=== PATIENT | male | born 1985 | race American Indian/Alaskan Native ===

== ENCOUNTER 2019-02-20 19:56 | Emergency (ER) | payer OTHER ==
--- NOTE | 2019-02-20 22:29 | XRay Report ---
PROCEDURE: XR CHEST ROUTINE 2V TECHNIQUE: PA and lateral chest radiographs were obtained. HISTORY: chest pain COMPARISONS: None. FINDINGS: Heart: Normal. Mediastinum/Vessels: Normal. Lungs/Pleural space: Normal. Bony thorax: No acute osseous abnormality. IMPRESSION: Normal examination. This document is electronically signed by Colton Astorga MD., Feb 20 2019 10:27:03 PM ET
[2019-02-20] MEDS ORDERED: LIDOCAINE VISCOUS 2% PO ONE (23:41)
[2019-02-20] MEDS ORDERED: ALUM-MAG HYDROX-SIMETH 200-200-20MG/5ML PO ONE (23:41)
[2019-02-21 00:03] LABS: Basophils % (Auto) 0.4 % (0.0-1.8); Eosinophils # (Auto) 0.1 K/mm3 (0.0-0.4); Eosinophils % (Auto) 1.3 % (0.0-4.3); Hematocrit 41.6 % (35.5-45.6); Hemoglobin 14.1 gm/dl (11.8-15.2); Lymphocytes # (Auto) 3.1 K/mm3 (1.2-5.4); Lymphocytes % (Auto) 48.2 % (13.4-35.0); Mean Corpuscular HGB Conc 34 % (32-34); Mean Corpuscular Volume 90 fl (84-94); Monocytes # (Auto) 0.8 K/mm3 (0.0-0.8); Monocytes % (Auto) 11.8 % (0.0-7.3); Platelet Count 249 K/mm3 (140-440); Red Blood Count 4.63 M/mm3 (3.65-5.03); Red Cell Distribution Width 13.5 % (13.2-15.2)
--- NOTE | 2019-02-21 00:25 | Emergency Department Report ---
ED Chest Pain HPI - General Chief Complaint: Chest Pain Stated Complaint: CHEST PAIN Time Seen by Provider: 02/20/19 23:17 Source: patient Mode of arrival: Ambulatory Limitations: No Limitations - History of Present Illness Initial Comments: Patient female who presents with chest pain Rice abscess normal for 1 week pain is intermittent and exacerbated by activity Cough and deep breathing pain is relieved by rest patient advised that he smokes marijuana daily his antibiotic is no fever no chills no nausea vomiting no diaphoresis no back pain or shor tness of breath MD Complaint: chest pain Onset/Timin -: week(s) Pain Location: substernal, epigastric Pain Radiation: none Severity: moderate Severity scale (0 -10): 5 Quality: sharp Consistency: intermittent Improves With: rest Worsens With: exertion, inspiration, other (cough) Other Symptoms: cough Treatments Prior to Arrival: none Aspirin use within the Past 7 Days: (0) No - Related Data Previous Rx's Medication Instructions Recorded Last Taken Type Amoxicillin [Trimox CAP] 500 mg PO Q8H #21 capsule 01/26/14 Unknown Rx HYDROcodone/APAP 10-325 [Fruit[place] 1 each PO Q6HR PRN #12 tablet 01/26/14 Unknown Rx 10-325 mg TAB] Famotidine [Pepcid] 20 mg PO BID #60 tablet 02/21/19 Unknown Rx Naproxen 500 mg PO BID PRN #30 tablet 02/21/19 Unknown Rx Allergies Allergy/AdvReac Type Severity Reaction Status Date / Time No Known Allergies Allergy Unverified 01/26/14 15:50 Heart Score - HEART Score History: Slightly suspicious EKG: Normal Age: < 45 Risk factors: No known risk factors Troponin: < normal limit HEART Score: 0 ED Review of Systems ROS: Stated complaint: CHEST PAIN Other details as noted in HPI Constitutional: denies: chills, fever Eyes: denies: eye pain, eye discharge, vision change ENT: denies: ear pain, throat pain, congestion Respiratory: denies: cough, shortness of breath, wheezing Cardiovascular: chest pain. denies: palpitations Endocrine: no symptoms reported Gastrointestinal: denies: abdominal pain, nausea, vomiting, diarrhea Genitourinary: denies: urgency, dysuria Musculoskeletal: denies: back pain, joint swelling, arthralgia Skin: denies: rash, lesions Neurological: denies: headache, weakness, paresthesias Psychiatric: denies: anxiety, depression Hematological/Lymphatic: denies: easy bleeding, easy bruising ED Past Medical Hx - Past Medical History Previous Medical History?: Yes Additional medical history: heart murmur - Surgical History Past Surgical History?: No - Social History Smoking Status: Current Every Day Smoker Substance Use Type: None - Medications Home Medications: Home Medications Medication Instructions Recorded Confirmed Last Taken Type Amoxicillin [Trimox CAP] 500 mg PO Q8H #21 capsule 01/26/14 Unknown Rx HYDROcodone/APAP 10-325 [[place] 1 each PO Q6HR PRN #12 tablet 01/26/14 Unknown Rx 10-325 mg TAB] Famotidine [Pepcid] 20 mg PO BID #60 tablet 02/21/19 Unknown Rx Naproxen 500 mg PO BID PRN #30 tablet 02/21/19 Unknown Rx ED Physical Exam - General Limitations: No Limitations General appearance: alert, in no apparent distress - Head Head exam: Present: atraumatic, normocephalic - Eye Eye exam: Present: normal appearance - ENT ENT exam: Present: mucous membranes moist - Neck Neck exam: Present: normal inspection, full ROM. Absent: tenderness, lymphadenopathy - Respiratory Respiratory exam: Present: normal lung sounds bilaterally, chest wall tenderness (anterior chest wall tenderness to palpation). Absent: respiratory distress, wheezes, stridor - Cardiovascular Cardiovascular Exam: Present: regular rate, normal rhythm, normal heart sounds. Absent: systolic murmur, diastolic murmur, rubs, gallop - GI/Abdominal GI/Abdominal exam: Present: soft, tenderness (epigastric), normal bowel sounds. Absent: bruit, hernia - Rectal Rectal exam: Present: deferred - Extremities Exam Extremities exam: Present: normal inspection, full ROM, normal capillary refill. Absent: tenderness, calf tenderness - Back Exam Back exam: Present: normal inspection, full ROM. Absent: tenderness, CVA tenderness (R), CVA tenderness (L), rash noted - Neurological Exam Neurological exam: Present: alert, oriented X3, CN II-XII intact, normal gait - Psychiatric Psychiatric exam: Present: normal affect, normal mood - Skin Skin exam: Present: warm, dry, intact, normal color. Absent: rash ED Course Vital Signs 02/20/19 20:20 Temperature 98.2 F Pulse Rate 69 Respiratory 18 Rate Blood Pressure 132/84 O2 Sat by Pulse 98 Oximetry SHAWN score - Shawn Score Age > 65: (0) No Aspirin use within the Past 7 Days: (0) No 3 or more CAD Risk Factors: (0) No 2 or more Angina events in past 24 hrs: (0) No Known CAD with more than 50% Stenosis: (0) No Elevated Cardiac Markers: (0) No ST Deviation Greater than 0.5mm: (0) No SHAWN Score: 0 ED Medical Decision Making - Lab Data Result diagrams: 02/20/19 23:54 02/20/19 23:54 Lab Results 02/20/19 Range/Units 23:54 WBC 6.4 (4.5-11.0) K/mm3 RBC 4.63 (3.65-5.03) M/mm3 Hgb 14.1 (11.8-15.2) gm/dl Hct 41.6 (35.5-45.6) % MCV 90 (84-94) fl MCH 31 (28-32) pg MCHC 34 (32-34) % RDW 13.5 (13.2-15.2) % Plt Count 249 (140-440) K/mm3 Lymph % (Auto) 48.2 H (13.4-35.0) % [place] % (Auto) 11.8 H (0.0-7.3) % Eos % (Auto) 1.3 (0.0-4.3) % Baso % (Auto) 0.4 (0.0-1.8) % Lymph # 3.1 (1.2-5.4) K/mm3 [place] # 0.8 (0.0-0.8) K/mm3 Eos # 0.1 (0.0-0.4) K/mm3 Baso # 0.0 (0.0-0.1) K/mm3 Seg Neutrophils % 38.3 L (40.0-70.0) % Seg Neutrophils # 2.4 (1.8-7.7) K/mm3 Labs 02/20/19 02/20/19 23:54 23:54 WBC 6.4 RBC 4.63 Hgb 14.1 Hct 41.6 MCV 90 MCH 31 MCHC 34 RDW 13.5 Plt Count 249 Lymph % (Auto) 48.2 H [place] % (Auto) 11.8 H Eos % (Auto) 1.3 Baso % (Auto) 0.4 Lymph # 3.1 [place] # 0.8 Eos # 0.1 Baso # 0.0 Seg Neutrophils % 38.3 L Seg Neutrophils # 2.4 Sodium 141 Potassium 3.8 Chloride 102.0 Carbon Dioxide 23 Anion Gap 20 BUN 11 Creatinine 1.2 Estimated GFR > 60 BUN/Creatinine Ratio 9 Glucose 93 Calcium 9.5 Total Bilirubin 0.20 AST 15 ALT 10 Alkaline Phosphatase 81 Troponin T < 0.010 Total Protein 6.6 Albumin 3.8 L Albumin/Globulin Ratio 1.4 Lipase 70 H - EKG Data EKG shows normal: sinus rhythm, axis, intervals, QRS complexes (LVH ), ST-T waves Rate: normal - EKG Data When compared to previous EKG there are: previous EKG unavailable (n previous ekg in hx) Interpretation: normal EKG, nonspecific ST-T wave jeremy, LVH (Ekg interp by ed attending No ST Elevated MD ) - Radiology Data Radiology results: report reviewed, [place] [address] XRay Report Signed Patient: MADDIE REYES MR#: [id number] : 1985 Acct:[id number] Age/Sex: 33 / M ADM Date: 02/20/19 Loc: ED Attending Dr: Ordering Physician: ERICK SOW MD Date of Service: 02/20/19 Procedure(s): XR chest routine 2V Accession Number(s): [id number] cc: ERICK SOW MD Fluoro Time In Minutes: PROCEDURE: XR CHEST ROUTINE 2V TECHNIQUE: PA and lateral chest radiographs were obtained. HISTORY: chest pain COMPARISONS: None. FINDINGS: Heart: Normal. Mediastinum/Vessels: Normal. Lungs/Pleural space: Normal. Bony thorax: No acute osseous abnormality. IMPRESSION: Normal examination. This document is electronically signed by Colton Vidal MD., Feb 20 2019 10:27:03 PM ET Transcribed By: [place] Dictated By: COLTON VIDAL MD Electronically Authenticated By: COLTON VIDAL MD Signed Date/Time: 02/20/192228 DD/ 17 TD/TT: 02/20/192117 - Medical Decision Making ekg NSR, no st elevated mi, trop: ,0.1, cxr: normal, heart score: 0, SHAWN score: 0, cmp: lipase: 70 - pt is tolerating po intake no n/v pain level is 0/10 after GI cocktail, cbc: normal, plan: decrease marijuana use, pepcid , follow up with pcp in 2-3 days , return to ed if symptoms worsen, pt verbalized agreement and understanding of discharge plan. Critical care attestation.: If time is entered above; I have spent that time in minutes in the direct care of this critically ill patient, excluding procedure time. ED Disposition Clinical Impression: Chest pain Qualifiers: Chest pain type: unspecified Qualified Code(s): R07.9 - Chest pain, unspecified Disposition: TO HOME OR SELFCARE Is pt being admited?: No Does the pt Need Aspirin: No Condition: Stable Instructions: Chest Pain (ED) Prescriptions: Naproxen 500 mg PO BID PRN #30 tablet PRN Reason: pain Famotidine [Pepcid] 20 mg PO BID #60 tablet Referrals: [facility] [Outside] - 3-5 Days Forms: Work/School Release Form(ED) Time of Disposition: 01:19
[2019-02-21 01:00] LABS: Alanine Aminotransferase 10 units/L (7-56); Albumin 3.8 g/dL (3.9-5); BUN/Creatinine Ratio 9; Blood Urea Nitrogen 11 mg/dL (9-20); Calcium 9.5 mg/dL (8.4-10.2); Hemolysis Index 12
[2019-02-21 02:39] VITALS: BP 125/87
== END 2019-02-21 01:30 | disposition home or self-care (01) ==
LOC: ED 19:56
DX: R07.89 Other chest pain (principal); F17.200 Nicotine dependence, unspecified, uncomplicated; Z79.899 Other long term (current) drug therapy
CPT/HCPCS: 36415; 71046; 80053; 83690; 84484; 85025; 93005; 93010